=== PATIENT | male | born 1980 | race Two or more races ===

== ENCOUNTER 2017-04-03 19:04 | Emergency (ER) | payer BC ==
--- NOTE | ~2017-04-03 | ER ---
PATIENT'S NAME: CHONG GILLIS [facility] AGE: 36 Y [address] ROOM: [place] [address] LOCATION: ED ADMIT DATE: 04/03/2017 ER/Outpatient Report DISCHARGE DATE: 04/03/2017 FAMILY PHYSICIAN: PHYSICIAN, NO ATTENDING PHYSICIAN: Irving Umana SEEN AT: 1925 hours. HISTORY OF PRESENT ILLNESS: The patient is a 36-year-old male who had somewhat sudden onset of swelling of his left eyelid. The patient thought that he was probably stung by an insect. Denies any significant pain, visual changes, or discharge from the eye. The patient does complain of some itching. ALLERGIES: ALLERGIC TO PENICILLIN. HOME MEDICATIONS: Does take Candace occasionally. MEDICAL HISTORY: No chronic diseases. SURGERY: Include right shoulder hernia repair. SOCIAL HISTORY: Smoker, 1/2 packs a day. Alcohol socially. REVIEW OF SYSTEMS: GENERAL: His health generally has been good. HEAD/EENT: Includes swelling of his left eyelid due to a possible insect bite. The patient does not wear contacts. Vision is not corrected. He has had no blurred vision. He has had no discharge from his eye. OBJECTIVE FINDINGS: VITAL SIGNS: Blood pressure 138/85, his temperature is 98.7, his O2 saturation is 95%, respirations 16, and his pulse is 96. GENERAL: The patient is alert and cooperative. HEAD/EENT: Exam of the left eye showed some swelling or edema of the left upper eyelid. The cornea itself appeared normal. There was no indurated areas noted with palpation of the upper eyelid. No discharge present. ASSESSMENT: PATIENT'S NAME: CHONG GILLIS [facility] AGE: 36 Y [address] ROOM: [place] [address] LOCATION: ED ADMIT DATE: 04/03/2017 ER/Outpatient Report DISCHARGE DATE: 04/03/2017 FAMILY PHYSICIAN: PHYSICIAN, NO ATTENDING PHYSICIAN: Irving Umana Left upper eyelid swelling, possible insect bite. PLAN: Recommend using some ice at home for 10 minutes every 2 hours for the next several hours. Advised him to go ahead and take an Candace at home. Avoid rubbing the eye. Follow up if it does not improve over the next 48 hours. RITA STERN FOR MD JANUARY CHACKO/modl /[id number] d: 04/04/17 0018 t: 04/11/17 1217, OUTPATIENT REPORT
== END 2017-04-03 19:43 | disposition disaster alternative care site (69) ==
LOC: GMED 19:04
DX: H02.89 Other specified disorders of eyelid (principal); F17.210 Nicotine dependence, cigarettes, uncomplicated; Z88.0 Allergy status to penicillin; Z79.899 Other long term (current) drug therapy